=== PATIENT | female | born 1965 | race Caucasian/White ===

== ENCOUNTER 2021-10-27 08:31 | Outpatient (CLI) | payer OTHER | END 2021-10-27 08:32 | disposition home or self-care (01) | LOC: CSHMAMMO 08:31 | PROVIDERS: ATTEND Family Medicine | DX: Z12.31 Encounter for screening mammogram for malignant neoplasm of breast (principal) | CPT/HCPCS: 77067 ==

== ENCOUNTER 2022-02-16 09:13 | Day surgery (SDC) | payer OTHER ==
[2022-02-16] MEDS ORDERED: diphenhydrAMINE 25 MG CAP ONE (10:04)
[2022-02-16] MEDS ORDERED: Aspirin 325 MG TAB ONE (10:05)
[2022-02-16] MEDS ORDERED: Ascorbic Acid 500 mg Chewable Tablet ONE (10:05)
[2022-02-16] MEDS ORDERED: Heparin 10,000 UNITS/ 10 ML VIAL ONE ×2 (10:07→10:52)
[2022-02-16] MEDS ORDERED: Adenosine 6 MG/2 ML VIAL ONE ×2 (10:07→10:53)
[2022-02-16] MEDS ORDERED: Nitroglycerin 50 MG/250 ML BOT 0 ML ONE (10:07)
[2022-02-16] MEDS ORDERED: Lidocaine 1% 20 ML MDV ONE (10:07)
[2022-02-16 10:09] LABS: #Basophils 0.1 10x3/uL (0.0-0.2); #Eosinphils 0.1 10x3/uL (0.0-0.5); #Monocytes 0.4 10x3/uL (0.0-1.1); %Basophils 0.6 % (0.0-2.0); %Eosinophils 0.6 % (0.0-6.0); %Monocytes 3.3 % (0.0-10.0); %Neutrophils 83.1 % (40.0-75.0); Hemoglobin 13.2 g/dL (12.0-15.5); Mean Corpuscular HGB CONC 33.5 g/dL (32.0-36.0); Mean Corpuscular Hemoglobin 30.5 pg (27.0-33.0); Mean Platelet Volume 9.5 fl (7.4-10.4); Platelet Count 386 10x3/uL (150-450); RBC Distribution Width 13.6 % (11.5-14.5); Red Blood Cell (RBC) Count 4.33 10x6/uL (3.90-5.03); White Blood Cell (WBC) Count 10.9 10x3/uL (3.5-10.5)
[2022-02-16 10:15] LABS: Prothrombin Time 10.8 sec (9.5-12.1)
[2022-02-16] MEDS ORDERED: predniSONE 20 MG TAB PO SCH (10:15)
[2022-02-16] MEDS ORDERED: Famotidine 20 MG TAB PO SCH (10:15)
[2022-02-16 10:25] LABS: ALT (SGPT) 28 U/L (8-55); AST (SGOT) 29 U/L (5-34); Albumin 4.7 g/dL (3.5-5.0); Alkaline Phosphatase 71 U/L (40-110); Anion Gap 12 mmol/L (10-20); BUN (Urea Nitrogen) 15 mg/dL (9.8-20.1); Bilirubin, Total 0.4 mg/dL (0.2-1.2); Calc. Creatinine Clearance 0 mL/min (70-130); Carbon Dioxide 26 mmol/L (22-29); Chloride 103 mmol/L (98-107); Estimated GFR 93; Glucose 109 mg/dL (70-105); Potassium 3.9 mmol/L (3.5-5.1); Protein, Total 7.7 g/dL (6.0-8.3); Sodium 137 mmol/L (136-145)
[2022-02-16] MEDS ORDERED: Fentanyl 100 MCG/2 ML VIAL ONE (10:53)
[2022-02-16] MEDS ORDERED: Midazolam HCl 2 mg/2 ml Vial ONE (10:54)
[2022-02-16] MEDS ORDERED: Nitroglycerin 50 MG/250 ML BOT 250 ML ONE (10:54)
[2022-02-16 13:06] VITALS: TEMP 97; BMI 28.3
[2022-02-16] MEDS ORDERED: Iopamidol 300 61% 100 ML VIAL FS ONE (13:11)
[2022-02-16 13:21] VITALS: BP 101/67
== END 2022-02-16 14:35 ==
LOC: CSHSDC/OP 09:13
PROVIDERS: ATTEND Specialist
PROC: B2111ZZ Fluoroscopy of Multiple Coronary Arteries using Low Osmolar Contrast (ICD-10-PCS; principal; 2022-02-16)
PROC: 4A023N7 Measurement of Cardiac Sampling and Pressure, Left Heart, Percutaneous Approach (ICD-10-PCS; principal; 2022-02-16)
DX: R07.9 Chest pain, unspecified (principal); R94.39 Abnormal result of other cardiovascular function study; I25.10 Atherosclerotic heart disease of native coronary artery without angina pectoris; E78.2 Mixed hyperlipidemia; R01.1 Cardiac murmur, unspecified; I13.0 Hypertensive heart and chronic kidney disease with heart failure and stage 1 through stage 4 chronic kidney disease, or unspecified chronic kidney disease; N18.9 Chronic kidney disease, unspecified; I50.32 Chronic diastolic (congestive) heart failure; I25.2 Old myocardial infarction; G43.909 Migraine, unspecified, not intractable, without status migrainosus; Z86.14 Personal history of Methicillin resistant Staphylococcus aureus infection; Z87.891 Personal history of nicotine dependence; Z79.82 Long term (current) use of aspirin; Z79.899 Other long term (current) drug therapy; Z88.1 Allergy status to other antibiotic agents; Z88.8 Allergy status to other drugs, medicaments and biological substances; Z91.040 Latex allergy status
CPT/HCPCS: 80053; 85025; 85610; 93458; 99152; 99153; C1760; C1769; J0153; J1644; J2250; J3010; J7512; Q9967